=== PATIENT | male | born 2000 | race African-American/Black ===

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

== ENCOUNTER 2021-02-08 21:49 | Emergency (ER) | payer SELFPAY ==
[~2021-02-08] VITALS: Ht 175.3 cm; Wt 54.5 kg
[~2021-02-08 21:49] MED LIST changes: +NORCO 325 MG-51 TAB PO
[2021-02-08] MEDS ORDERED: PEN-VEE K500 MG PO (22:57)
[2021-02-08 23:30] VITALS: BP 110/71; PULSE 85; TEMP 98.9
== END 2021-02-08 23:30 | disposition home or self-care (01) ==
LOC: COL.ER 21:49
DX: J02.9 Acute pharyngitis, unspecified (principal)
CPT/HCPCS: J0696; J1100

== ENCOUNTER 2024-04-29 20:23 | Emergency (ER) | payer SELFPAY ==
[~2024-04-29] VITALS: Ht 177.8 cm; Wt 58.2 kg
[~2024-04-29 20:23] MED LIST changes: +ILOTYCIN5 MG/GM OP; +PEN-VEE K500 MG PO
[2024-04-29 20:41] VITALS: TEMP 98.5
[2024-04-29 21:01] VITALS: BP 100/67; PULSE 60
== END 2024-04-29 21:39 | disposition home or self-care (01) ==
LOC: COL.ER 20:23
DX: H10.9 Unspecified conjunctivitis (principal)